=== PATIENT | female | born 1985 | race Two or more races ===

== ENCOUNTER 2020-07-18 00:13 | Emergency (ER) | payer OTHER ==
[~2020-07-18] VITALS: Ht 167.6 cm; Wt 87.0 kg
[2020-07-18 00:15] VITALS: BP 131/79
[2020-07-18] MEDS ORDERED: HYDROCODONE/ACETAMINOPHEN 5/325MG TABLET PO ONE (00:30)
[2020-07-18] MEDS ORDERED: IBUPROFEN 600MG TABLET PO ONE (00:30)
== END 2020-07-18 00:51 | disposition home or self-care (01) ==
LOC: ER 00:13
DX: K02.9 Dental caries, unspecified (principal); Z98.890 Other specified postprocedural states
CPT/HCPCS: 99283